=== PATIENT | male | born 1995 | race Caucasian/White ===

== ENCOUNTER 2017-11-09 19:13 | Emergency (ER) | payer SELFPAY ==
[2017-11-09 19:39] VITALS: BP 128/73
--- NOTE | 2017-11-09 20:11 | ER Document Report ---
HPI - HPI Pain Level: 4 Notes: Patient is a 22-year-old male no significant past medical history who presents to the ED complaining of 10-12 episodes of watery diarrhea over the last 2 days. Patient is not sure if it is involved with being exposed to mold at work. Patient states that he is still able to eat and drink without any difficulties. He is urinating normally. He has not noticed any melena or hematochezia. Patient states he does not have any pain associated. Patient states that he feels fine at this time, and has not been taking any medicines for symptoms because he did not know what to take. He denies any new foods, raw food, distance travel, recent illness. Denies any headache, fever, URI, sore throat, chest pain, palpitations, syncope, cough, shortness of breath, wheeze, dyspnea, abdominal pain, nausea/vomiting, urinary retention, dysuria, hematuria, back pain, loss of control of bowel or bladder, or rash. - ROS Systems Reviewed and Negative: Yes All other systems reviewed and negative Past Medical History - Social History Smoking Status: Never Smoker Family History: Reviewed & Not Pertinent Vertical Provider Document - CONSTITUTIONAL Agree With Documented VS: Yes Notes: PHYSICAL EXAMINATION: GENERAL: Well-appearing, well-nourished and in no acute distress. LUNGS: Breath sounds clear to auscultation bilaterally and equal. No wheezes rales or rhonchi. HEART: Regular rate and rhythm without murmurs, rubs, gallops. ABDOMEN: Soft, nontender, nondistended abdomen. No guarding, no rebound. No masses appreciated. Normal bowel sounds present. No CVA tenderness bilaterally. Musculoskeletal: FROM to passive/active. Strength 5+/5. Extremities: No cyanosis, clubbing, or edema b/l. Peripheral pulses 2+. Capillary refill less than 3 seconds. NEUROLOGICAL: normal speech, normal gait. PSYCH: Normal mood, normal affect. SKIN: Warm, Dry, normal turgor, no rashes or lesions noted. - INFECTION CONTROL TRAVEL OUTSIDE OF THE [place] IN LAST 30 DAYS: No Course - Re-evaluation Re-evalutation: 11/09/17 20:08 Patient is an afebrile, well-hydrated, 22-year-old male who presents to the ED with watery diarrhea, suspect viral. Vitals are acceptable without any significant tachycardia, tachypnea, or hypoxia. PE is otherwise unremarkable. Patient's abdomen is soft and nontender. Patient is nontoxic-appearing and is tolerating p.o. without difficulties. He is currently symptomatic. No labs or imaging warranted at this time. Low suspicion/risk for acute appendicitis, bowel obstruction, acute cholecystitis, perforated diverticulitis, incarcerated hernia, pancreatitis, perforated ulcer, peritonitis, sepsis, severe dehydration , or other systemic emergent condition at this time. Patient is aware that his condition can change from initial presentation and he needs to monitor symptoms closely and seek medical attention if any acute changes. I will send him home with Imodium. Conservative measures otherwise for symptoms. Recheck with PCM in 3-5 days. Consider consult with a retail attendant. Return to the ED with any worsening/concerning symptoms otherwise as reviewed in discharge. Patient is in agreement. - Vital Signs Vital signs: Temp Pulse Resp BP Pulse Ox 98.5 F 101 H 16 128/73 H 99 11/09/17 19:37 11/09/17 19:37 11/09/17 19:37 11/09/17 19:37 11/09/17 19:37 Discharge - Discharge Clinical Impression: Diarrhea Qualifiers: Diarrhea type: unspecified type Qualified Code(s): R19.7 - Diarrhea, unspecified Condition: Stable Disposition: HOME, SELF-CARE Instructions: Diarrhea, Nonspecific ([facility]) Additional Instructions: Maintain adequate fluid and bland food intake High-fiber diet Probiotics Recheck with your PCM in 3-5 days Consider consult with Gastroenterology for ongoing/worsening symptoms Return to the ED with any worsening symptoms and/or development of fever, headache, chest pain, palpitations, syncope, shortness of breath, trouble breathing, abdominal pain, n/v/d, blood in stool/urine, weakness, or other worsening symptoms that are concerning to you. Prescriptions: Loperamide HCl [Imodium 2 mg Capsule] 2 mg PO PRN PRN #21 cap PRN Reason: Forms: Elevated Blood Pressure Referrals: ENE GARZA MD [ACTIVE STAFF] - Follow up as needed VISHNU REILLY MD [ACTIVE STAFF] - Follow up as needed
== END 2017-11-09 20:14 | disposition home or self-care (01) ==
LOC: ER 19:13
DX: R19.7 Diarrhea, unspecified (principal)
CPT/HCPCS: 99283